=== PATIENT | female | born 1990 | race Caucasian/White ===

== ENCOUNTER 2025-06-07 05:25 | Emergency (ER) | payer OTHER ==
[~2025-06-07] VITALS: Ht 157.5 cm; Wt 117.0 kg
[~2025-06-07 05:25] MED LIST: ANTOXYBENA LEFTEAR; BIRTH CONTROL; CYCL10 PO; LEVO750 PO; NAPR500 PO; OXYACE5T PO; VICODIN 5-3001 EACH PO; Zofran4 MG PO
[2025-06-07] MEDS ORDERED: Ketorolac Tromethamine 15mg Vial IM ONE ×2 (06:15)
[2025-06-07] MEDS ORDERED: Lidocaine 4% 1 Patch TOP ONE (06:15)
[2025-06-07] MEDS ORDERED: ACET500 PO (07:47)
[2025-06-07] MEDS ORDERED: IBUP600 PO (07:47)
[2025-06-07 07:57] VITALS: BP 154/98
== END 2025-06-07 07:58 | disposition home or self-care (01) ==
LOC: ER 05:25
DX: M54.50 Low back pain, unspecified (principal); Z79.899 Other long term (current) drug therapy
CPT/HCPCS: 20552; 96372-59; 99283-25; A9270; J1885